=== PATIENT | female | born 1995 | race Caucasian/White ===

== ENCOUNTER 2016-09-15 17:26 | Emergency (ER) | payer MEDICAID ==
[~2016-09-15] VITALS: Ht 157.5 cm; Wt 88.5 kg
[2016-09-15 17:35] VITALS: BP 110/65
--- NOTE | 2016-09-15 20:12 | NUR ---
PT TAKEN TO [facility]
--- NOTE | 2016-09-15 20:37 | NUR ---
Dr. Argueta evaluating patient
--- NOTE | 2016-09-15 20:37 | NUR ---
PATIENT PRESENTS TO ED WITH ETOH, VOMITING AND LOWER ABD PAIN [id number] . PT STATES SHE ALSO FEELS LIKE SHE MAY HAVE AN STI AT THIS TIME . DENIES DIARRHEA; SKIN IS PINK/WARM/DRY; AAOX4 WITH EVEN AND STEADY GAIT; LUNGS CLEAR BL; HR EVEN AND REGULAR; PT DENIES ANY FEVER, CP, SOB, OR COUGH AT THIS TIME; PATIENT STATES PAIN OF 7/10 AT THIS TIME; VSS; PATIENT POSITIONED FOR COMFORT; HOB ELEVATED; BEDRAILS UP X2; BED DOWN. ER MD MADE AWARE OF PT STATUS. MOM AT PT SIDE AT THIS TIME
[2016-09-15] MEDS ORDERED: ONDANSETRON 4 MG ODT PO ONE (20:40)
[2016-09-15 20:50] VITALS: BP 110/65
== END 2016-09-15 20:50 | disposition left against medical advice (07) ==
LOC: MED 17:26
DX: F10.129 Alcohol abuse with intoxication, unspecified (principal); R11.2 Nausea with vomiting, unspecified
CPT/HCPCS: 99283